=== PATIENT | female | born 1970 | race Caucasian/White ===

== ENCOUNTER 2016-06-29 11:24 | Emergency (ER) | payer SELFPAY ==
--- NOTE | 2016-06-29 13:32 | ED ORDER SUMMARY ---
..... Patient: GERRY WILSON OrderSheet [facility] VisitID: [id number] [address] [place] [address] 45y, F Registration Date/Time: 06/29/2016 ORDER SHEET Weight: 79.3 kg (stated) Allergies: Sulfa Antibiotics GENERAL ORDERS: MEDICATION ORDERS: Cephalexin PO 500 mg (NOW) (13:06/29/2016 Vahe COOK) (13:50 LWhalen R.N.) Zofran ODT PO 8 mg (NOW) (13:06/29/2016 Vahe COOK) (13:50 LWhaljoanne R.N.) Hydrocodone-APAP PO 5/325 mg (NOW, HIGH ALERT MEDICATION) (13:06/29/2016 Vahe COOK) (13:50 LWhalen R.N.) Toradol IM 60 mg (NOW) (13:06/29/2016 Vahe COOK) (13:51 LWhaljoanne R.N.) IV FLUIDS: ORDER SHEET NOTES: [Electronically signed by Kim Martínez R.N. (18:55 06/29/2016)] [Electronically signed by Nat Leon MD (08:11 07/03/2016)] [Electronically locked/signed by Kim Martínez R.N. (18:55 06/29/2016)]
--- NOTE | 2016-06-29 13:32 | ED NURSING NOTES ---
Clinical Report - Nurses [facility] [address] [place] [address] 06/29/2016 11:26 Patient: GERRY WILSON TRIAGE Triage time 11:35 Jun 29 2016. Acuity: LEVEL 3. Chief Complaint: RIGHT EAR PAIN and SINUS PAIN. ORACIO COMA SCORE: Oracio Coma Scale: 15- eyes open spontaneously (4); best verbal response- oriented x 4 (5); best motor response- obeys commands (6). --11:43 Kim Martínez R.N. 11:34 06/29/16. BP: 123/97. HR: 89. RR: 20. Temp: 98.0 F. --11:43 Kim Martínez R.N. Weight: 79.3 kg stated. Height/Length: 68 inches Per Patient. BMI: 26.6. --11:42 Kim Martínez R.N. Medications None. --11:35 Kim Martínez R.N. Allergies Sulfa Antibiotics. --11:35 Kim Martínez R.N. History Arrived by private vehicle. Historian: patient. Accompanied by family. Onset. (one weeks ago pain started.). She has had sinus pain and a headache. No fever, nasal discharge, ear drainage or sore throat. 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 PAST MEDICAL HX: No history of ear infection, hearing loss or prior nosebleeds. Immunizations: up-to-date. No history of sinus problems. SOCIAL HX: Current every day light tobacco smoker (cigarette)- less than 1/2 a pack per day. No alcohol use or drug use. SELF HARM ASSESSMENT: A self harm assessment was performed. The patient answered "no" to the question "Have you recently felt down, depressed, or hopeless?" and "Do you have thoughts of harming or killing yourself?". FALL RISK ASSESSMENT: Fall risk assessment completed. No fall risk identified. NUTRITIONAL RISK ASSESSMENT: The nutritional risk assessment revealed no deficiencies. FUNCTIONAL ASSESSMENT: Functional assessment: no impairments noted. LEARNING NEEDS ASSESSMENT: The learning needs assessment revealed no barriers. ABUSE ASSESSMENT: Abuse assessment: (yes) The patient was asked "Do you feel safe in your home?". SKIN INTEGRITY ASSESSMENT: Skin integrity risk assessment completed. No skin integrity risk identified. --11:43 Kim Martínez R.N. PROBLEMS: no known problems. ADDITIONAL SURGERIES: Appendectomy. Cholecystectomy. Csection . Hysterectomy. Jaw surgery . Right ankle tendon . Salvary glands removed . Shoulders . Wrist fx . --11:41 Kim Martínez R.N. Interventions ID and allergy band on patient. --11:43 Kim Martínez R.N. PHYSICAL ASSESSMENT Ambulatory to room. GENERAL / NEURO / PSYCH: Alert. Appears in no acute distress. HEENT: ( right side facial swelling). Pupils equal, round and reactive to light. EOM intact. ( previous surgeries and scars removed glands.). RESPIRATORY: Respirations not labored. CVS: Capillary refill less than 2 seconds. SKIN: Skin is warm and dry. --11:44 Kim Martínez R.N. NURSING PROGRESS NOTES The initial plan of care for this patient includes an assessment with efforts to address patient positioning and appropriate ambient lighting; impairment of the respiratory system. Head of bed elevated (45). Reassurance given. Call light placed in reach. Side rails up x 1. Bed placed in lowest position. Brakes of bed on. --11:45 Kim Martínez R.N. 13:35 06/29/2016 Cephalexin (Cephalexin Monohydrate) PO Capsules 500 mg given. Allergies verified and confirmed 5 rights. --13:50 Kim Martínez R.N. 13:40 06/29/2016 Zofran ODT (Ondansetron) PO Oral Disintegrating Tablets 8 mg given. Allergies verified and confirmed 5 rights. --13:50 Kim Martínez R.N. 13:40 06/29/2016 Hydrocodone-APAP (Hydrocodone-Acetaminophen) PO 5/325 mg Tablets 1 tab given. Allergies verified, confirmed 5 rights and sedative warning given to the patient's certified nursing attendant. --13:50 Kim Martínez R.N. 13:41 06/29/2016 Toradol (Ketorolac Tromethamine) IM 60 mg given. Given in the right gluteus vincenzo and left gluteus vincenzo (split dose). Allergies verified and confirmed 5 rights. --13:51 Kim Martínez R.N. DISPOSITION / DISCHARGE Departure time: 13:52 Jun 29 2016. Condition at departure: improved. No learning barriers present. Discharge instructions provided and reviewed with the patient. Reviewed warnings. Reviewed medication(s). Treatments reviewed. Reviewed referrals. Patient verbalized understanding. Written instructions provided in British. The patient was discharged home and accompanied by spouse. She left the Emergency Department ambulatory and via private vehicle. Spouse driving. --13:52 Kim Martínez R.N. 13:51 06/29/16. BP: 136/72. HR: 80. RR: 20. O2 saturation: 100%. Temp: 98.6 F. Pain level now 5/10. --13:52 Kim Martínez R.N. Locked/Released at 06/29/2016 18:55 by Kim Martínez R.N.
--- NOTE | 2016-06-29 13:32 | ED CLINICAL REPORT ---
Clinical Report - Physicians/Mid Levels [facility] [address] [place] [address] 06/29/2016 11:26 Patient: GERRY WILSON Time Seen: 11:31. Arrived- By private vehicle. Historian- patient. HISTORY OF PRESENT ILLNESS Chief Complaint: pain over R parotid gland. This started yesterday and is still present. Pain described as moderate. No sore throat, mouth sores, nasal discharge or congestion or ear pain. No toothache, swollen jaw or face or jaw pain. She has had facial pain. Similar symptoms previously: Many times. 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 Pt states she has had her submandibular glands both removed for this reason by an ENT in [place]. Pt states it feels like she is coming down with an infection in her R parotid gland.). Recent medical care: Not recently seen/assessed. REVIEW OF SYSTEMS No fever, eye discomfort, cough, difficulty breathing or chest pain. No nausea, diarrhea, abdominal pain, difficulty with urination or headache. No fainting episodes, joint pain, skin rash, enlarged lymph nodes or vomiting. All systems otherwise negative, except as recorded above. PAST HISTORY Problems: no known problems. Additional Surgeries: Appendectomy. Cholecystectomy. Csection . Hysterectomy. Jaw surgery . Right ankle tendon . Salvary glands removed . Shoulders . Wrist fx . Medications: None. Allergies: Sulfa Antibiotics. SOCIAL HISTORY Smoker- current status unknown. No alcohol use or drug use. ADDITIONAL NOTES The nursing notes have been reviewed. PHYSICAL EXAM Vital Signs: 06/29/2016 11:34 BP: 123/97. HR: 89. RR: 20. Temp: 98.0 F. Have been reviewed. Appearance: Alert. No acute distress. Head: Normal external inspection. Eyes: Pupils equal, round and reactive to light. Conjunctivae and eyelids normal. ENT: Ears normal. Nose normal. Pharynx normal. Lips normal. Gums normal. No trismus present. Uvula midline. (Pt does have mild tenderness over her R parotid gland.). Neck: Normal inspection. Trachea midline. No adenopathy. Thyroid normal. Neck supple. CVS: Normal heart rate and rhythm. Heart sounds normal. Pulses normal. Respiratory: No respiratory distress. Breath sounds normal. Chest nontender. Skin: Normal skin color. No rash. Normal skin turgor. Extremities: Extremities exhibit normal ROM. Neuro: Oriented X 3. No motor deficit. No sensory deficit. LABS, X-RAYS, AND EKG Pulse Oximetry: (FIO2 - room air). Interpretation: normal. PROGRESS AND PROCEDURES Course of Care: I did d/w pt that I do not see external evidence of infection. As she has been through this many times before, however, I will go ahead and treat her, as this may be an early manifestation of the issues she has had before. Pt was given Keflex, Toradol, Zofran, and hydrocodone. Patient counseled in person regarding the patient's stable condition, test results and need for follow-up. Concerns were addressed. Old medical records reviewed. Disposition: Discharged. Condition: stable. CLINICAL IMPRESSION Acute recurrent sialoadenitis INSTRUCTIONS Drink plenty of fluids. Warnings: Further evaluation is necessary. SEDATIVE MEDICATION: You were given sedative medication during your visit. Do not drive or operate dangerous machinery for 6 hours. GENERAL WARNINGS: Return or contact your physician immediately if your condition worsens or changes unexpectedly, if not improving as expected, or if other problems arise. Prescription Medications: Hydrocodone/APAP 5mg / 325mg: take 1 orally every 6 hours as needed for pain. Dispense twelve (12). Cephalexin 500 mg: take 1 capsule orally every 6 hours for 7 days. No refill. Understanding of the discharge instructions verbalized by patient. Follow-up with: Cheng Best MD, ENT, , [facility], [address] [place] [address], [facility], [id number] Follow up. Call for the next available appointment. Reason for referral: Follow up chronic salivary gland issues. (Electronically signed by Nat Leon MD 07/03/2016 8:11)
--- NOTE | 2016-06-29 13:32 | ED ORDER SUMMARY ---
..... Patient: GERRY WILSON OrderSheet [facility] VisitID: [id number] [address] [place] [address] 45y, F Registration Date/Time: 06/29/2016 ORDER SHEET Weight: 79.3 kg (stated) Allergies: Sulfa Antibiotics GENERAL ORDERS: MEDICATION ORDERS: Cephalexin PO 500 mg (NOW) (13:06/29/2016 Vahe COOK) (13:50 LWhalen R.N.) Zofran ODT PO 8 mg (NOW) (13:06/29/2016 Vahe COOK) (13:50 LWhaljoanne R.N.) Hydrocodone-APAP PO 5/325 mg (NOW, HIGH ALERT MEDICATION) (13:06/29/2016 Vahe COOK) (13:50 LWhalen R.N.) Toradol IM 60 mg (NOW) (13:06/29/2016 Vahe COOK) (13:51 LWhaljoanne R.N.) IV FLUIDS: ORDER SHEET NOTES: [Electronically signed by Kim Martínez R.N. (18:55 06/29/2016)] [Electronically signed by Nat Leon MD (08:11 07/03/2016)] [Electronically locked/signed by Kim Martínez R.N. (18:55 06/29/2016)]
--- NOTE | 2016-06-29 13:32 | ED CLINICAL REPORT ---
Clinical Report - Physicians/Mid Levels [facility] [address] [place] [address] 06/29/2016 11:26 Patient: GERRY WILSON Time Seen: 11:31. Arrived- By private vehicle. Historian- patient. HISTORY OF PRESENT ILLNESS Chief Complaint: pain over R parotid gland. This started yesterday and is still present. Pain described as moderate. No sore throat, mouth sores, nasal discharge or congestion or ear pain. No toothache, swollen jaw or face or jaw pain. She has had facial pain. Similar symptoms previously: Many times. 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 Pt states she has had her submandibular glands both removed for this reason by an ENT in [place]. Pt states it feels like she is coming down with an infection in her R parotid gland.). Recent medical care: Not recently seen/assessed. REVIEW OF SYSTEMS No fever, eye discomfort, cough, difficulty breathing or chest pain. No nausea, diarrhea, abdominal pain, difficulty with urination or headache. No fainting episodes, joint pain, skin rash, enlarged lymph nodes or vomiting. All systems otherwise negative, except as recorded above. PAST HISTORY Problems: no known problems. Additional Surgeries: Appendectomy. Cholecystectomy. Csection . Hysterectomy. Jaw surgery . Right ankle tendon . Salvary glands removed . Shoulders . Wrist fx . Medications: None. Allergies: Sulfa Antibiotics. SOCIAL HISTORY Smoker- current status unknown. No alcohol use or drug use. ADDITIONAL NOTES The nursing notes have been reviewed. PHYSICAL EXAM Vital Signs: 06/29/2016 11:34 BP: 123/97. HR: 89. RR: 20. Temp: 98.0 F. Have been reviewed. Appearance: Alert. No acute distress. Head: Normal external inspection. Eyes: Pupils equal, round and reactive to light. Conjunctivae and eyelids normal. ENT: Ears normal. Nose normal. Pharynx normal. Lips normal. Gums normal. No trismus present. Uvula midline. (Pt does have mild tenderness over her R parotid gland.). Neck: Normal inspection. Trachea midline. No adenopathy. Thyroid normal. Neck supple. CVS: Normal heart rate and rhythm. Heart sounds normal. Pulses normal. Respiratory: No respiratory distress. Breath sounds normal. Chest nontender. Skin: Normal skin color. No rash. Normal skin turgor. Extremities: Extremities exhibit normal ROM. Neuro: Oriented X 3. No motor deficit. No sensory deficit. LABS, X-RAYS, AND EKG Pulse Oximetry: (FIO2 - room air). Interpretation: normal. PROGRESS AND PROCEDURES Course of Care: I did d/w pt that I do not see external evidence of infection. As she has been through this many times before, however, I will go ahead and treat her, as this may be an early manifestation of the issues she has had before. Pt was given Keflex, Toradol, Zofran, and hydrocodone. Patient counseled in person regarding the patient's stable condition, test results and need for follow-up. Concerns were addressed. Old medical records reviewed. Disposition: Discharged. Condition: stable. CLINICAL IMPRESSION Acute recurrent sialoadenitis INSTRUCTIONS Drink plenty of fluids. Warnings: Further evaluation is necessary. SEDATIVE MEDICATION: You were given sedative medication during your visit. Do not drive or operate dangerous machinery for 6 hours. GENERAL WARNINGS: Return or contact your physician immediately if your condition worsens or changes unexpectedly, if not improving as expected, or if other problems arise. Prescription Medications: Hydrocodone/APAP 5mg / 325mg: take 1 orally every 6 hours as needed for pain. Dispense twelve (12). Cephalexin 500 mg: take 1 capsule orally every 6 hours for 7 days. No refill. Understanding of the discharge instructions verbalized by patient. Follow-up with: Cheng Best MD, ENT, , [facility], [address] [place] [address], [facility], [id number] Follow up. Call for the next available appointment. Reason for referral: Follow up chronic salivary gland issues. (Electronically signed by Nat Leon MD 07/03/2016 8:11)
--- NOTE | 2016-06-29 13:32 | ED NURSING NOTES ---
Clinical Report - Nurses [facility] [address] [place] [address] 06/29/2016 11:26 Patient: GERRY WILSON TRIAGE Triage time 11:35 Jun 29 2016. Acuity: LEVEL 3. Chief Complaint: RIGHT EAR PAIN and SINUS PAIN. ORACIO COMA SCORE: Oracio Coma Scale: 15- eyes open spontaneously (4); best verbal response- oriented x 4 (5); best motor response- obeys commands (6). --11:43 Kim Martínez R.N. 11:34 06/29/16. BP: 123/97. HR: 89. RR: 20. Temp: 98.0 F. --11:43 Kim Martínez R.N. Weight: 79.3 kg stated. Height/Length: 68 inches Per Patient. BMI: 26.6. --11:42 Kim Martínez R.N. Medications None. --11:35 Kim Martínez R.N. Allergies Sulfa Antibiotics. --11:35 Kim Martínez R.N. History Arrived by private vehicle. Historian: patient. Accompanied by family. Onset. (one weeks ago pain started.). She has had sinus pain and a headache. No fever, nasal discharge, ear drainage or sore throat. Treatment SIPHONER: (antibiotics, lemon water). PAST MEDICAL HX: No history of ear infection, hearing loss or prior nosebleeds. Immunizations: up-to-date. No history of sinus problems. SOCIAL HX: Current every day light tobacco smoker (cigarette)- less than 1/2 a pack per day. No alcohol use or drug use. SELF HARM ASSESSMENT: A self harm assessment was performed. The patient answered "no" to the question "Have you recently felt down, depressed, or hopeless?" and "Do you have thoughts of harming or killing yourself?". FALL RISK ASSESSMENT: Fall risk assessment completed. No fall risk identified. NUTRITIONAL RISK ASSESSMENT: The nutritional risk assessment revealed no deficiencies. FUNCTIONAL ASSESSMENT: Functional assessment: no impairments noted. LEARNING NEEDS ASSESSMENT: The learning needs assessment revealed no barriers. ABUSE ASSESSMENT: Abuse assessment: (yes) The patient was asked "Do you feel safe in your home?". SKIN INTEGRITY ASSESSMENT: Skin integrity risk assessment completed. No skin integrity risk identified. --11:43 Kim Martínez R.N. PROBLEMS: no known problems. ADDITIONAL SURGERIES: Appendectomy. Cholecystectomy. Csection . Hysterectomy. Jaw surgery . Right ankle tendon . Salvary glands removed . Shoulders . Wrist fx . --11:41 Kim Martínez R.N. Interventions ID and allergy band on patient. --11:43 Kim Martínez R.N. PHYSICAL ASSESSMENT Ambulatory to room. GENERAL / NEURO / PSYCH: Alert. Appears in no acute distress. HEENT: ( right side facial swelling). Pupils equal, round and reactive to light. EOM intact. ( previous surgeries and scars removed glands.). RESPIRATORY: Respirations not labored. CVS: Capillary refill less than 2 seconds. SKIN: Skin is warm and dry. --11:44 Kim Martínez R.N. NURSING PROGRESS NOTES The initial plan of care for this patient includes an assessment with efforts to address patient positioning and appropriate ambient lighting; impairment of the respiratory system. Head of bed elevated (45). Reassurance given. Call light placed in reach. Side rails up x 1. Bed placed in lowest position. Brakes of bed on. --11:45 Kim Martínez R.N. 13:35 06/29/2016 Cephalexin (Cephalexin Monohydrate) PO Capsules 500 mg given. Allergies verified and confirmed 5 rights. --13:50 Kim Martínez R.N. 13:40 06/29/2016 Zofran ODT (Ondansetron) PO Oral Disintegrating Tablets 8 mg given. Allergies verified and confirmed 5 rights. --13:50 Kim Martínez R.N. 13:40 06/29/2016 Hydrocodone-APAP (Hydrocodone-Acetaminophen) PO 5/325 mg Tablets 1 tab given. Allergies verified, confirmed 5 rights and sedative warning given to the patient's coordinator mining products. --13:50 Kim Martínez R.N. 13:41 06/29/2016 Toradol (Ketorolac Tromethamine) IM 60 mg given. Given in the right gluteus vincenzo and left gluteus vincenzo (split dose). Allergies verified and confirmed 5 rights. --13:51 Kim Martínez R.N. DISPOSITION / DISCHARGE Departure time: 13:52 Jun 29 2016. Condition at departure: improved. No learning barriers present. Discharge instructions provided and reviewed with the patient. Reviewed warnings. Reviewed medication(s). Treatments reviewed. Reviewed referrals. Patient verbalized understanding. Written instructions provided in Chilean. The patient was discharged home and accompanied by spouse. She left the Emergency Department ambulatory and via private vehicle. Spouse driving. --13:52 Kim Martínez R.N. 13:51 06/29/16. BP: 136/72. HR: 80. RR: 20. O2 saturation: 100%. Temp: 98.6 F. Pain level now 5/10. --13:52 Kim Martínez R.N. Locked/Released at 06/29/2016 18:55 by Kim Martínez R.N.
--- NOTE | 2016-07-03 08:11 | ED DISCHARGE INSTRUCTIONS ---
Patient: GERRY WILSON General Instructions [facility] VisitID: [id number] [address] [place] [address] 45y, F Registration Date/Time: 06/29/2016 Acute recurrent sialoadenitis INSTRUCTIONS Drink plenty of fluids. Warnings: Further evaluation is necessary. SEDATIVE MEDICATION: You were given sedative medication during your visit. Do not drive or operate dangerous machinery for 6 hours. GENERAL WARNINGS: Return or contact your physician immediately if your condition worsens or changes unexpectedly, if not improving as expected, or if other problems arise. Prescription Medications: Hydrocodone/APAP 5mg / 325mg: take 1 orally every 6 hours as needed for pain. Dispense twelve (12). Cephalexin 500 mg: take 1 capsule orally every 6 hours for 7 days. No refill. Understanding of the discharge instructions verbalized by patient. Follow-up with: Cheng Best MD, ENT, , [facility], [address] [place] [address], [id number] Follow up. Call for the next available appointment. Reason for referral: Follow up chronic salivary gland issues. ADDITIONAL INFORMATION Salivary Gland Infection Salivary glands make saliva in response to food in your mouth. Saliva is mostly water, but also has minerals and proteins that help break down food and keep the mouth and teeth healthy. There are three pairs of salivary glands: Parotid glands (in front of the ear) Submandibular glands (below the jaw) Sublingual glands (below the tongue) Each gland has a duct (channel) that allows saliva to flow from the gland into the mouth. The salivary gland can become infected as a result of the salivary duct being blocked. This blockage may be due to a stone, narrowing of the duct, or poor salivary flow due to dehydration. Chronic illness or certain medications can also increase the risk of infection. A blocked salivary gland is at risk of infection. This causes severe pain in the gland with redness in the skin over the gland. The gland is tender to the touch and there may be fever. Symptoms are worse during eating since food stimulates the flow of saliva. Even the smell or thought of food can cause symptoms to appear. Diagnosis of a salivary gland blockage with infection requires an X-ray, CT-scan, ultrasound or injection of dye into the salivary duct. If a stone is discovered, it may be removed by massage of the duct, or a procedure to remove the stone manually. Antibiotics are used to treat the infection. Sometimes it is necessary to drain the infection with a small surgical procedure. Home Care: Drink 6-8 glasses of fluid per day (water, juices, tea, soup, etc.) to keep well-hydrated. If you smoke, quit smoking. Maintain good dental hygiene: [place] your teeth, floss, and use mouthwash. If it is determined that no stone is present, but you have gland swelling during meals, there may be sludge blocking the duct, or the duct may be narrowed. Gently massaging the gland and sucking on lemon drops after a meal may help reduce the symptoms. Take antibiotics as directed until you have finished them all, even if you are feeling better after only a few days. Follow Up with your doctor or as advised by our staff. Get Prompt Medical Attention if any of the following occur: Increasing pain or swelling in the gland Fever over 100.5F (38.0C) that persists after two days of antibiotics Increasing redness over the gland You have been given the following additional information: Salivary Gland Infection (Electronically signed by Nat Leon MD 07/03/2016 8:11)
--- NOTE | 2016-07-03 08:11 | ED MAR SUMMARY ---
..... Medication Administration Record [facility] [address] [place] [address] Patient: GERRY WILSON Visit ID: [id number] 45y, F Weight: 79.3 kg Height/Length: 68 in BMI: 26.6 ALLERGIES: Sulfa Antibiotics Given 13:35 06/29/2016 Kim Martínez RNimco Medication Administered: CEPHALEXIN [PO] (CEPHALEXIN MONOHYDRATE), Dose: 500 mg Capsules PO. Medication Ordered: Cephalexin PO 500 mg (NOW). Given 13:40 06/29/2016 Kim Martínez R.NChuckie Medication Administered: ZOFRAN ODT [PO] (ONDANSETRON), Dose: 8 mg Oral Disintegrating Tablets PO. Medication Ordered: Zofran ODT PO 8 mg (NOW). Given 13:40 06/29/2016 Kim Martínez RChuckieNChuckie Medication Administered: HYDROCODONE-APAP [PO] (HYDROCODONE-ACETAMINOPHEN), Dose: 1 tab 5/325 mg Tablets PO. Medication Ordered: Hydrocodone-APAP PO 5/325 mg (NOW, HIGH ALERT MEDICATION). Given 13:41 06/29/2016 Kim Martínez RChuckieNChuckie Medication Administered: TORADOL [IM] (KETOROLAC TROMETHAMINE), Dose: 60 mg IM. Medication Ordered: Toradol IM 60 mg (NOW).
--- NOTE | 2016-07-03 08:11 | ED MED RECONCILIATION SUMMARY ---
Patient: GERRY WILSON Medication Reconciliation Report [facility] VisitID: [id number] [address] [place] [address] 45y, F Registration Date/Time: 06/29/2016 Weight: 79.3 kg Height/Length: 68 in. BMI: 26.6 ALLERGIES: Sulfa Antibiotics The patient's Home Medications are listed below: NONE. The source(s) of the original Home Medication information: Not obtained. The following Medications were given to the patient in the Emergency Department: Cephalexin [PO] PO 500 mg, administered: 06/29/2016 1:35:00 PM Zofran ODT [PO] PO 8 mg, administered: 06/29/2016 1:40:00 PM Hydrocodone-APAP [PO] PO 1 tab, administered: 06/29/2016 1:40:00 PM Toradol [IM] IM 60 mg, administered: 06/29/2016 1:41:00 PM The following Medications were prescribed to the patient: Hydrocodone/APAP 5mg / 325mg: take 1 orally every 6 hours as needed for pain. Dispense twelve (12). -- Nat Leon MD Cephalexin 500 mg: take 1 capsule orally every 6 hours for 7 days. No refill. -- Nat Leon MD
--- NOTE | 2016-07-03 08:11 | ED DISCHARGE INSTRUCTIONS ---
Patient: GERRY WILSON General Instructions [facility] VisitID: [id number] [address] [place] [address] 45y, F Registration Date/Time: 06/29/2016 Acute recurrent sialoadenitis INSTRUCTIONS Drink plenty of fluids. Warnings: Further evaluation is necessary. SEDATIVE MEDICATION: You were given sedative medication during your visit. Do not drive or operate dangerous machinery for 6 hours. GENERAL WARNINGS: Return or contact your physician immediately if your condition worsens or changes unexpectedly, if not improving as expected, or if other problems arise. Prescription Medications: Hydrocodone/APAP 5mg / 325mg: take 1 orally every 6 hours as needed for pain. Dispense twelve (12). Cephalexin 500 mg: take 1 capsule orally every 6 hours for 7 days. No refill. Understanding of the discharge instructions verbalized by patient. Follow-up with: Cheng Best MD, ENT, , [facility], [address] [place] [address], [phone] Follow up. Call for the next available appointment. Reason for referral: Follow up chronic salivary gland issues. ADDITIONAL INFORMATION Salivary Gland Infection Salivary glands make saliva in response to food in your mouth. Saliva is mostly water, but also has minerals and proteins that help break down food and keep the mouth and teeth healthy. There are three pairs of salivary glands: Parotid glands (in front of the ear) Submandibular glands (below the jaw) Sublingual glands (below the tongue) Each gland has a duct (channel) that allows saliva to flow from the gland into the mouth. The salivary gland can become infected as a result of the salivary duct being blocked. This blockage may be due to a stone, narrowing of the duct, or poor salivary flow due to dehydration. Chronic illness or certain medications can also increase the risk of infection. A blocked salivary gland is at risk of infection. This causes severe pain in the gland with redness in the skin over the gland. The gland is tender to the touch and there may be fever. Symptoms are worse during eating since food stimulates the flow of saliva. Even the smell or thought of food can cause symptoms to appear. Diagnosis of a salivary gland blockage with infection requires an X-ray, CT-scan, ultrasound or injection of dye into the salivary duct. If a stone is discovered, it may be removed by massage of the duct, or a procedure to remove the stone manually. Antibiotics are used to treat the infection. Sometimes it is necessary to drain the infection with a small surgical procedure. Home Care: Drink 6-8 glasses of fluid per day (water, juices, tea, soup, etc.) to keep well-hydrated. If you smoke, quit smoking. Maintain good dental hygiene: [place] your teeth, floss, and use mouthwash. If it is determined that no stone is present, but you have gland swelling during meals, there may be sludge blocking the duct, or the duct may be narrowed. Gently massaging the gland and sucking on lemon drops after a meal may help reduce the symptoms. Take antibiotics as directed until you have finished them all, even if you are feeling better after only a few days. Follow Up with your doctor or as advised by our staff. Get Prompt Medical Attention if any of the following occur: Increasing pain or swelling in the gland Fever over 100.5F (38.0C) that persists after two days of antibiotics Increasing redness over the gland You have been given the following additional information: Salivary Gland Infection (Electronically signed by Nat Leon MD 07/03/2016 8:11)
--- NOTE | 2016-07-03 08:11 | ED MED RECONCILIATION SUMMARY ---
Patient: GERRY WILSON Medication Reconciliation Report [facility] VisitID: [id number] [address] [place] [address] 45y, F Registration Date/Time: 06/29/2016 Weight: 79.3 kg Height/Length: 68 in. BMI: 26.6 ALLERGIES: Sulfa Antibiotics The patient's Home Medications are listed below: NONE. The source(s) of the original Home Medication information: Not obtained. The following Medications were given to the patient in the Emergency Department: Cephalexin [PO] PO 500 mg, administered: 06/29/2016 1:35:00 PM Zofran ODT [PO] PO 8 mg, administered: 06/29/2016 1:40:00 PM Hydrocodone-APAP [PO] PO 1 tab, administered: 06/29/2016 1:40:00 PM Toradol [IM] IM 60 mg, administered: 06/29/2016 1:41:00 PM The following Medications were prescribed to the patient: Hydrocodone/APAP 5mg / 325mg: take 1 orally every 6 hours as needed for pain. Dispense twelve (12). -- Nat Leon MD Cephalexin 500 mg: take 1 capsule orally every 6 hours for 7 days. No refill. -- Nat Leon MD
--- NOTE | 2016-07-03 08:11 | ED MAR SUMMARY ---
..... Medication Administration Record [facility] [address] [place] [address] Patient: GERRY WILSON Visit ID: [id number] 45y, F Weight: 79.3 kg Height/Length: 68 in BMI: 26.6 ALLERGIES: Sulfa Antibiotics Given 13:35 06/29/2016 Kim Martínez RNimco Medication Administered: CEPHALEXIN [PO] (CEPHALEXIN MONOHYDRATE), Dose: 500 mg Capsules PO. Medication Ordered: Cephalexin PO 500 mg (NOW). Given 13:40 06/29/2016 Kim Martínez R.NChuckie Medication Administered: ZOFRAN ODT [PO] (ONDANSETRON), Dose: 8 mg Oral Disintegrating Tablets PO. Medication Ordered: Zofran ODT PO 8 mg (NOW). Given 13:40 06/29/2016 Kmi Martínez RChuckieNChuckie Medication Administered: HYDROCODONE-APAP [PO] (HYDROCODONE-ACETAMINOPHEN), Dose: 1 tab 5/325 mg Tablets PO. Medication Ordered: Hydrocodone-APAP PO 5/325 mg (NOW, HIGH ALERT MEDICATION). Given 13:41 06/29/2016 Kim Martínez RChuckieNChuckie Medication Administered: TORADOL [IM] (KETOROLAC TROMETHAMINE), Dose: 60 mg IM. Medication Ordered: Toradol IM 60 mg (NOW).
== END 2016-06-29 14:00 | disposition home or self-care (01) ==
LOC: ED SRH 11:24
DX: K11.22 Acute recurrent sialoadenitis (principal); Z88.2 Allergy status to sulfonamides

== ENCOUNTER → 2016-07-03 | Emergency (ER) | payer SELFPAY ==
--- NOTE | 2016-07-03 16:15 | ED ORDER SUMMARY ---
..... Patient: GERRY WILSON OrderSheet [facility] VisitID: [id number] [address] [place] [address] 45y, F Registration Date/Time: 07/03/2016 ORDER SHEET Weight: 81.6 kg (stated) Allergies: Sulfa Antibiotics GENERAL ORDERS: CT Soft Tissue Neck w Cont (No) (pending) Urgent (14:05 07/03/2016 HBivens A.R.N.P.) (Ack 14:06 KHoerner) (14:08 HBivens A.R.N.P.) (Cancelled: Patient Acoxzbg71:08 HBivens A.R.N.P.) CBC w Diff Urgent (14:05 07/03/2016 HBivens A.R.N.P.) (Ack 14:06 KHoerner) (15:08 KKnebel R.N.) CMP Urgent (14:05 07/03/2016 HBivens A.R.N.P.) (Ack 14:06 KHoerner) (15:08 KKnebel R.N.) MEDICATION ORDERS: IV FLUIDS: Toradol IV 30 mg (NOW) (14:05 07/03/2016 HBivens A.R.N.P.) (15:08 KKnebel R.N.) IV Saline Lock (14:07/03/2016 HBivens A.R.N.P.) (15:07 KKnebel R.N.) ORDER SHEET NOTES: [Electronically signed by Sharmaine Childs R.N. (16:27 07/03/2016)] [Electronically signed by Jane HookerR.N.PChuckie (16:52 07/03/2016)] [Electronically locked/signed by Sharmaine Childs R.N. (16:27 07/03/2016)]
--- NOTE | 2016-07-03 16:15 | ED CLINICAL REPORT ---
Clinical Report - Physicians/Mid Levels [facility] [address] [place] [address] 07/03/2016 13:02 Patient: GERRY WILSON Time Seen: 13:56; initial patient contact, initial documentation, patient care assumed. Arrived- By private vehicle. Historian- patient. HISTORY OF PRESENT ILLNESS Chief Complaint: JAW PAIN. This started about 1 weeks ago and is still present. Pain described as severe. No sore throat, mouth sores, nasal discharge or congestion or ear pain. No toothache or swollen jaw or face. She has had jaw pain and facial pain. 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 Similar symptoms previously: Frequently, worse. ( Similar symptoms previously: Many times. 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 Pt states she has had her submandibular glands both removed for this reason by an ENT in [place]. Pt states it feels like she is coming down with an infection in her R parotid gland.).). Recent medical care: The patient was seen recently at this facility in the emergency department. ( txed here /, Pt was given Keflex, Toradol, Zofran, and hydrocodone.). REVIEW OF SYSTEMS No fever, difficulty breathing or vomiting. All systems otherwise negative, except as recorded above. PAST HISTORY See nurses notes. PROBLEMS: Sialoadenitis. --13:13 Sharmaine Childs R.N. ADDITIONAL SURGERIES: Appendectomy. Cholecystectomy. Csection . Hysterectomy. Jaw surgery . Right ankle tendon . Salvary glands removed . Shoulders . Wrist fx . --13:13 Sharmaine Childs R.N. SOCIAL HISTORY Never smoker. No alcohol use or drug use. No recent travel. Is a local resident. FAMILY HISTORY Negative. ADDITIONAL NOTES The nursing notes have been reviewed with agreement regarding the chief complaint, HPI, ROS, PMH and patient medications and allergies. PHYSICAL EXAM Vital Signs: 07/03/2016 13:09 BP: 133/65. HR: 97. RR: 20. O2 saturation: 100%. Temp: 98.1 F. Pain level now: 6/10. Have been reviewed as normal and appear to be correct. Appearance: Alert. No acute distress. Head: Normal external inspection. Eyes: Pupils equal, round and reactive to light. Conjunctivae and eyelids normal. ENT: Ears normal. Nose normal. Pharynx normal. Lips normal. Gums normal. No trismus present. Uvula midline. Neck: Lymphadenopathy. Normal inspection. Mild right submandibular lymphadenopathy present. Trachea midline. Thyroid normal. Neck supple. Respiratory: No respiratory distress. Skin: Normal skin color. No rash. Normal skin turgor. Extremities: Extremities exhibit normal ROM. Extremities nontender. Neuro: Oriented X 3. No motor deficit. No sensory deficit. LABS, X-RAYS, AND EKG Laboratory Tests: CBC w Diff: (ANNA: 07/03/2016 15:10) ( MsgRcvd 07/03/2016 15:29) Final results Test Result Flag Units (Reference) WHITE BLOOD COUNT 5.9 K/uL (4.5-11.5) RED BLOOD COUNT 4.24 M/uL (4.00-5.20) HEMOGLOBIN 12.2 gm/dL (12.0-16.0) HEMATOCRIT 36.6 % (36.0-46.0) MEAN CELL VOLUME 86 fL (80-100) MEAN CORPUSCULAR HGB 29 pg (26-34) MEAN CORPUSCULAR HGB CONC 33 g/dL (31-37) RED CELL DISTRIBUTION WIDTH 14.9 H % (11.6-14.8) PLATELET COUNT 292 K/uL (150-400) NEUTROPHIL % 40.1 L % (50-75) LYMPH % 51.2 H % (25-40) MONO % 5.5 % (3-14) EOSINOPHIL % 2.5 % (0-4) BASOPHIL % 0.7 % (0-2) CMP: (ANNA: 07/03/2016 15:10) ( MsgRcvd 07/03/2016 15:48) Final results Test Result Flag Units (Reference) GLUCOSE 100 mg/dL (70-110) BUN 20 H mg/dL (7-18) CREATININE 0.8 mg/dL (0.6-1.3) Estimated GFR >60 mL/min Estimated GFR- >60 mL/min Note: Persistent reduction over 3 months in eGFR<60 mL/min/1.73 m2 defines CKD. Patients with eGFR values>=60 mL/min/1.73 m2 may also have CKD if evidence ofpersistent proteinuria. Additional information may be foundat www.kidney.org. SODIUM 143 mmol/L (136-145) POTASSIUM 4.3 mmol/L (3.5-5.1) CHLORIDE 106 mmol/L (98-107) CARBON DIOXIDE 29 mmol/L (21-32) CALCIUM 9.2 mg/dL (8.5-10.1) TOTAL PROTEIN 6.9 g/dL (6.4-8.2) ALBUMIN 3.8 g/dL (3.3-5.0) BILIRUBIN, TOTAL 0.2 mg/dL (0.0-1.0) ALKALINE PHOSPHATASE 84 U/L (46-116) AST (SGOT) 23 U/L (15-37) ALT (SGPT) 24 U/L (12-78) . PROGRESS AND PROCEDURES Course of Care: 14:08 07/03/16. pt telling me ct is useless, they won't see anything, doesn't want it done, but agrees to blood work, ct canceled per her request 14:16 07/03/16. pt has brief romario, nothing alarming, see report for full details 16:14 07/03/16. dc plan discussed, agreed to give name of new ent, because she couldn't get into one we gave her last time, and maybe more pain meds. Patient and family counseled in person regarding the patient's stable condition, test results and diagnosis. 16:10. Differential Diagnosis: Other possible considerations: salivary gland stone, submandibular abscess, substance abuse, dental abscess, lymphoma, ca. Above considerations are based on history, physical exam and laboratory data. Differential diagnosis was discussed with patient and patient's family. Disposition: Discharged home in good and unchanged condition (16:15). Condition: good and stable. CLINICAL IMPRESSION Sialolithiasis. No associated abscess or acute parotitis. INSTRUCTIONS (continue with current antibiotics and other medications as previously directed and discussed). Warnings: GENERAL WARNINGS: Return or contact your physician immediately if your condition worsens or changes unexpectedly, if not improving as expected, or if other problems arise. Specifically return if problem worsens. Prescription Medications: Ultram 50 mg tablets: take 1-2 orally every 6 hours as needed for pain. Dispense twenty (20). No refills. Substitution is permissible. Understanding of the discharge instructions verbalized by patient and family. Follow-up with: Hector Covington MD, ENT, , [facility], [address] [place] [address], [phone]; Romario Lozano MD, ENT, , [facility] Office, [address] [facility] [address] [facility], [place], [address] Follow up in about two days as needed. Call for an appointment. Summary of care provided to patient. (Electronically signed by Jane Hooker A.R.N.P. 07/03/2016 16:52)
--- NOTE | 2016-07-03 16:15 | ED NURSING NOTES ---
Clinical Report - Nurses [facility] [address] [place] [address] 07/03/2016 13:02 Patient: GERRY WILSON TRIAGE Triage time 13:Jul 03 2016. Acuity: LEVEL 4. Chief Complaint: (salivary stones). Alert. No acute distress. --13:15 Sharmaine Childs R.N. 13:09 07/03/16. BP: 133/65. HR: 97. RR: 20. O2 saturation: 100%. Temp: 98.1 F. Pain level now: 10/07. --13:15 Sharmaine Childs R.N. Weight: 81.6 kg stated. Height/Length: 67 inches Per Patient. BMI: 28.2. --13:14 Sharmaine Childs R.N. Medications Vicodin Oral (Tablet 5-300 mg) 1 tablet, 4x a day. --13:12 Sharmaine Childs R.N. Cephlaexin 500 mg , 4x a day. --13:12 Sharmaine Childs R.N. Allergies Sulfa Antibiotics. --13:13 Sharmaine Childs R.N. History Arrived by private vehicle. Historian: patient. Accompanied by family. Onset. (about 1 weeks). 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 (vicodin, cephalexin). PAST MEDICAL HX: Immunizations: up-to-date. Has had a hysterectomy. SOCIAL HX: Never smoker. No alcohol use or drug use. No infectious disease exposure. SELF HARM ASSESSMENT: A self harm assessment was performed. The patient answered "no" to the question "Do you have thoughts of harming or killing yourself?". FALL RISK ASSESSMENT: Fall risk assessment completed. No fall risk identified. NUTRITIONAL RISK ASSESSMENT: The nutritional risk assessment revealed no deficiencies. FUNCTIONAL ASSESSMENT: Functional assessment: no impairments noted. LEARNING NEEDS ASSESSMENT: The learning needs assessment revealed no barriers. ABUSE ASSESSMENT: Abuse assessment: The patient was asked "Do you feel safe in your home?". SKIN INTEGRITY ASSESSMENT: Skin integrity risk assessment completed. No skin integrity risk identified. --13:15 Sharmaine Childs R.N. PROBLEMS: Sialoadenitis. --13:13 Sharmaine Childs R.N. ADDITIONAL SURGERIES: Appendectomy. Cholecystectomy. Csection . Hysterectomy. Jaw surgery . Right ankle tendon . Salvary glands removed . Shoulders . Wrist fx . --13:13 Sharmaine Childs R.N. Assessment The patient states feels the same. --13:15 Sharmaine Childs R.N. Interventions ID band on patient. --13:15 Sharmaine Childs R.N. Allergy band on patient. --13:15 Sharmaine Childs R.N. PHYSICAL ASSESSMENT GENERAL / NEURO / PSYCH: Alert. Oriented X 4. Appears in no acute distress. HEENT: No facial asymmetry noted. ( right lower jaw pain). RESPIRATORY: Respirations not labored. CVS: Capillary refill less than 2 seconds. GI / : Abdomen soft. SKIN: Skin is warm and dry. --13:16 Sharmaine Childs R.N. NURSING PROGRESS NOTES Head of bed elevated. Two patient identifiers checked. Call light placed in reach. Side rails up x 1. Bed placed in lowest position. Brakes of bed on. Care transferred and report given. --13:16 Sharmaine Childs R.N. 15:07 07/03/2016 Site #1 started via IV in the left hand with an 22g angiocath; one attempt. Saline lock flushed with 10 mL saline. --15:07 Sharmaine Childs R.N. 15:07 07/03/2016 Toradol IVP 30 mg given over 2 minute(s) via site #1. Allergies verified and confirmed 5 rights. IV patency established. IV site checked: no pain, redness, or swelling. IV flushed thoroughly pre- and post-medication administration. --15:08 Sharmaine Childs R.N. 15:41 07/03/16. BP: 125/84. HR: 82. O2 saturation: 99%. Pain level now: 5/10. --15:42 Sharmaine Childs R.N. DISPOSITION / DISCHARGE 16:24 07/03/16. BP: 125/89. HR: 80. RR: 16. O2 saturation: 98%. Pain level now: 09/06. --16:24 Sharmaine Childs R.N. 16:25 07/03/2016 Site #1 removed upon discharge. Bandage applied. --16:25 Sharmaine Childs R.N. Departure time: 16:26 Jul 03 2016. Condition at departure: improved. The following issues were addressed: pain control. No learning barriers present. Discharge instructions provided and reviewed with the patient. Reviewed medication(s) side effects, precautions and dosing information. Prescription(s) given to the patient. Reviewed referral to a primary care physician. Patient verbalized understanding. Written instructions provided in [place]i. The patient was discharged home and accompanied by spouse. She left the Emergency Department ambulatory and via private vehicle. Spouse driving. FALL RISK ASSESSMENT: Fall risk assessment completed. No fall risk identified. --16:27 Sharmaine Childs R.N. Locked/Released at 07/03/2016 16:27 by Sharmaine Childs R.N.
--- NOTE | 2016-07-03 16:15 | ED ORDER SUMMARY ---
..... Patient: GERRY WILSON OrderSheet [facility] VisitID: [id number] [address] [place] [address] 45y, F Registration Date/Time: 07/03/2016 ORDER SHEET Weight: 81.6 kg (stated) Allergies: Sulfa Antibiotics GENERAL ORDERS: CT Soft Tissue Neck w Cont (No) (pending) Urgent (14:05 07/03/2016 HBivens A.R.N.P.) (Ack 14:06 KHoerner) (14:08 HBivens A.R.N.P.) (Cancelled: Patient Wcspmfv07:08 HBivens A.R.N.P.) CBC w Diff Urgent (14:05 07/03/2016 HBivens A.R.N.P.) (Ack 14:06 KHoerner) (15:08 KKnebel R.N.) CMP Urgent (14:05 07/03/2016 HBivens A.R.N.P.) (Ack 14:06 KHoerner) (15:08 KKnebel R.N.) MEDICATION ORDERS: IV FLUIDS: Toradol IV 30 mg (NOW) (14:05 07/03/2016 HBivens A.R.N.P.) (15:08 KKnebel R.N.) IV Saline Lock (14:07/03/2016 HBivens A.R.N.P.) (15:07 KKnebel R.N.) ORDER SHEET NOTES: [Electronically signed by Sharmaine Childs R.N. (16:27 07/03/2016)] [Electronically signed by Jane HookerR.N.PChuckie (16:52 07/03/2016)] [Electronically locked/signed by Sharmaine Childs R.N. (16:27 07/03/2016)]
--- NOTE | 2016-07-03 16:15 | ED NURSING NOTES ---
Clinical Report - Nurses [facility] [address] [place] [address] 07/03/2016 13:02 Patient: GERRY WILSON TRIAGE Triage time 13:Jul 03 2016. Acuity: LEVEL 4. Chief Complaint: (salivary stones). Alert. No acute distress. --13:15 Sharmaine Childs R.N. 13:09 07/03/16. BP: 133/65. HR: 97. RR: 20. O2 saturation: 100%. Temp: 98.1 F. Pain level now: 10/07. --13:15 Sharmaine Childs R.N. Weight: 81.6 kg stated. Height/Length: 67 inches Per Patient. BMI: 28.2. --13:14 Sharmaine Childs R.N. Medications Vicodin Oral (Tablet 5-300 mg) 1 tablet, 4x a day. --13:12 Sharmaine Childs R.N. Cephlaexin 500 mg , 4x a day. --13:12 Sharmaine Childs R.N. Allergies Sulfa Antibiotics. --13:13 Sharmaine Childs R.N. History Arrived by private vehicle. Historian: patient. Accompanied by family. Onset. (about 1 weeks). 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 (vicodin, cephalexin). PAST MEDICAL HX: Immunizations: up-to-date. Has had a hysterectomy. SOCIAL HX: Never smoker. No alcohol use or drug use. No infectious disease exposure. SELF HARM ASSESSMENT: A self harm assessment was performed. The patient answered "no" to the question "Do you have thoughts of harming or killing yourself?". FALL RISK ASSESSMENT: Fall risk assessment completed. No fall risk identified. NUTRITIONAL RISK ASSESSMENT: The nutritional risk assessment revealed no deficiencies. FUNCTIONAL ASSESSMENT: Functional assessment: no impairments noted. LEARNING NEEDS ASSESSMENT: The learning needs assessment revealed no barriers. ABUSE ASSESSMENT: Abuse assessment: The patient was asked "Do you feel safe in your home?". SKIN INTEGRITY ASSESSMENT: Skin integrity risk assessment completed. No skin integrity risk identified. --13:15 Sharmaine Childs R.N. PROBLEMS: Sialoadenitis. --13:13 Sharmaine Childs R.N. ADDITIONAL SURGERIES: Appendectomy. Cholecystectomy. Csection . Hysterectomy. Jaw surgery . Right ankle tendon . Salvary glands removed . Shoulders . Wrist fx . --13:13 Sharmaine Childs R.N. Assessment The patient states feels the same. --13:15 Sharmaine Childs R.N. Interventions ID band on patient. --13:15 Sharmaine Childs R.N. Allergy band on patient. --13:15 Sharmaine Childs R.N. PHYSICAL ASSESSMENT GENERAL / NEURO / PSYCH: Alert. Oriented X 4. Appears in no acute distress. HEENT: No facial asymmetry noted. ( right lower jaw pain). RESPIRATORY: Respirations not labored. CVS: Capillary refill less than 2 seconds. GI / : Abdomen soft. SKIN: Skin is warm and dry. --13:16 Sharmaine Childs R.N. NURSING PROGRESS NOTES Head of bed elevated. Two patient identifiers checked. Call light placed in reach. Side rails up x 1. Bed placed in lowest position. Brakes of bed on. Care transferred and report given. --13:16 Sharmaine Childs R.N. 15:07 07/03/2016 Site #1 started via IV in the left hand with an 22g angiocath; one attempt. Saline lock flushed with 10 mL saline. --15:07 Sharmaine Childs R.N. 15:07 07/03/2016 Toradol IVP 30 mg given over 2 minute(s) via site #1. Allergies verified and confirmed 5 rights. IV patency established. IV site checked: no pain, redness, or swelling. IV flushed thoroughly pre- and post-medication administration. --15:08 Sharmaine Childs R.N. 15:41 07/03/16. BP: 125/84. HR: 82. O2 saturation: 99%. Pain level now: 5/10. --15:42 Sharmaine Childs R.N. DISPOSITION / DISCHARGE 16:24 07/03/16. BP: 125/89. HR: 80. RR: 16. O2 saturation: 98%. Pain level now: 09/06. --16:24 Sharmaine Childs R.N. 16:25 07/03/2016 Site #1 removed upon discharge. Bandage applied. --16:25 Sharmaine Childs R.N. Departure time: 16:26 Jul 03 2016. Condition at departure: improved. The following issues were addressed: pain control. No learning barriers present. Discharge instructions provided and reviewed with the patient. Reviewed medication(s) side effects, precautions and dosing information. Prescription(s) given to the patient. Reviewed referral to a primary care physician. Patient verbalized understanding. Written instructions provided in Burmese. The patient was discharged home and accompanied by spouse. She left the Emergency Department ambulatory and via private vehicle. Spouse driving. FALL RISK ASSESSMENT: Fall risk assessment completed. No fall risk identified. --16:27 Sharmaine Childs R.N. Locked/Released at 07/03/2016 16:27 by Sharmaine Childs R.N.
--- NOTE | 2016-07-03 16:15 | ED CLINICAL REPORT ---
Clinical Report - Physicians/Mid Levels [facility] [address] [place] [address] 07/03/2016 13:02 Patient: GERRY WILSON Time Seen: 13:56; initial patient contact, initial documentation, patient care assumed. Arrived- By private vehicle. Historian- patient. HISTORY OF PRESENT ILLNESS Chief Complaint: JAW PAIN. This started about 1 weeks ago and is still present. Pain described as severe. No sore throat, mouth sores, nasal discharge or congestion or ear pain. No toothache or swollen jaw or face. She has had jaw pain and facial pain. 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 Similar symptoms previously: Frequently, worse. ( Similar symptoms previously: Many times. 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 Pt states she has had her submandibular glands both removed for this reason by an ENT in [place]. Pt states it feels like she is coming down with an infection in her R parotid gland.).). Recent medical care: The patient was seen recently at this facility in the emergency department. ( txed here /, Pt was given Keflex, Toradol, Zofran, and hydrocodone.). REVIEW OF SYSTEMS No fever, difficulty breathing or vomiting. All systems otherwise negative, except as recorded above. PAST HISTORY See nurses notes. PROBLEMS: Sialoadenitis. --13:13 Sharmaine Childs R.N. ADDITIONAL SURGERIES: Appendectomy. Cholecystectomy. Csection . Hysterectomy. Jaw surgery . Right ankle tendon . Salvary glands removed . Shoulders . Wrist fx . --13:13 Sharmaine Childs R.N. SOCIAL HISTORY Never smoker. No alcohol use or drug use. No recent travel. Is a local resident. FAMILY HISTORY Negative. ADDITIONAL NOTES The nursing notes have been reviewed with agreement regarding the chief complaint, HPI, ROS, PMH and patient medications and allergies. PHYSICAL EXAM Vital Signs: 07/03/2016 13:09 BP: 133/65. HR: 97. RR: 20. O2 saturation: 100%. Temp: 98.1 F. Pain level now: 6/10. Have been reviewed as normal and appear to be correct. Appearance: Alert. No acute distress. Head: Normal external inspection. Eyes: Pupils equal, round and reactive to light. Conjunctivae and eyelids normal. ENT: Ears normal. Nose normal. Pharynx normal. Lips normal. Gums normal. No trismus present. Uvula midline. Neck: Lymphadenopathy. Normal inspection. Mild right submandibular lymphadenopathy present. Trachea midline. Thyroid normal. Neck supple. Respiratory: No respiratory distress. Skin: Normal skin color. No rash. Normal skin turgor. Extremities: Extremities exhibit normal ROM. Extremities nontender. Neuro: Oriented X 3. No motor deficit. No sensory deficit. LABS, X-RAYS, AND EKG Laboratory Tests: CBC w Diff: (ANNA: 07/03/2016 15:10) ( MsgRcvd 07/03/2016 15:29) Final results Test Result Flag Units (Reference) WHITE BLOOD COUNT 5.9 K/uL (4.5-11.5) RED BLOOD COUNT 4.24 M/uL (4.00-5.20) HEMOGLOBIN 12.2 gm/dL (12.0-16.0) HEMATOCRIT 36.6 % (36.0-46.0) MEAN CELL VOLUME 86 fL (80-100) MEAN CORPUSCULAR HGB 29 pg (26-34) MEAN CORPUSCULAR HGB CONC 33 g/dL (31-37) RED CELL DISTRIBUTION WIDTH 14.9 H % (11.6-14.8) PLATELET COUNT 292 K/uL (150-400) NEUTROPHIL % 40.1 L % (50-75) LYMPH % 51.2 H % (25-40) MONO % 5.5 % (3-14) EOSINOPHIL % 2.5 % (0-4) BASOPHIL % 0.7 % (0-2) CMP: (ANNA: 07/03/2016 15:10) ( MsgRcvd 07/03/2016 15:48) Final results Test Result Flag Units (Reference) GLUCOSE 100 mg/dL (70-110) BUN 20 H mg/dL (7-18) CREATININE 0.8 mg/dL (0.6-1.3) Estimated GFR >60 mL/min Estimated GFR- >60 mL/min Note: Persistent reduction over 3 months in eGFR<60 mL/min/1.73 m2 defines CKD. Patients with eGFR values>=60 mL/min/1.73 m2 may also have CKD if evidence ofpersistent proteinuria. Additional information may be foundat www.kidney.org. SODIUM 143 mmol/L (136-145) POTASSIUM 4.3 mmol/L (3.5-5.1) CHLORIDE 106 mmol/L (98-107) CARBON DIOXIDE 29 mmol/L (21-32) CALCIUM 9.2 mg/dL (8.5-10.1) TOTAL PROTEIN 6.9 g/dL (6.4-8.2) ALBUMIN 3.8 g/dL (3.3-5.0) BILIRUBIN, TOTAL 0.2 mg/dL (0.0-1.0) ALKALINE PHOSPHATASE 84 U/L (46-116) AST (SGOT) 23 U/L (15-37) ALT (SGPT) 24 U/L (12-78) . PROGRESS AND PROCEDURES Course of Care: 14:08 07/03/16. pt telling me ct is useless, they won't see anything, doesn't want it done, but agrees to blood work, ct canceled per her request 14:16 07/03/16. pt has brief romario, nothing alarming, see report for full details 16:14 07/03/16. dc plan discussed, agreed to give name of new ent, because she couldn't get into one we gave her last time, and maybe more pain meds. Patient and family counseled in person regarding the patient's stable condition, test results and diagnosis. 16:10. Differential Diagnosis: Other possible considerations: salivary gland stone, submandibular abscess, substance abuse, dental abscess, lymphoma, ca. Above considerations are based on history, physical exam and laboratory data. Differential diagnosis was discussed with patient and patient's family. Disposition: Discharged home in good and unchanged condition (16:15). Condition: good and stable. CLINICAL IMPRESSION Sialolithiasis. No associated abscess or acute parotitis. INSTRUCTIONS (continue with current antibiotics and other medications as previously directed and discussed). Warnings: GENERAL WARNINGS: Return or contact your physician immediately if your condition worsens or changes unexpectedly, if not improving as expected, or if other problems arise. Specifically return if problem worsens. Prescription Medications: Ultram 50 mg tablets: take 1-2 orally every 6 hours as needed for pain. Dispense twenty (20). No refills. Substitution is permissible. Understanding of the discharge instructions verbalized by patient and family. Follow-up with: Hector Covington MD, ENT, , [facility], [address] [place] [address], [id number]; Romario Lozano MD, ENT, , [facility], [address] [facility] [address] [facility], [place], [address] Follow up in about two days as needed. Call for an appointment. Summary of care provided to patient. (Electronically signed by Jane Hooker A.R.N.P. 07/03/2016 16:52)
--- NOTE | 2016-07-03 16:53 | ED DISCHARGE INSTRUCTIONS ---
Patient: GERRY WILSON General Instructions [facility] VisitID: [id number] [address] [place] [address] 45y, F Registration Date/Time: 07/03/2016 Sialolithiasis. No associated abscess or acute parotitis. INSTRUCTIONS (continue with current antibiotics and other medications as previously directed and discussed). Warnings: GENERAL WARNINGS: Return or contact your physician immediately if your condition worsens or changes unexpectedly, if not improving as expected, or if other problems arise. Specifically return if problem worsens. Prescription Medications: Ultram 50 mg tablets: take 1-2 orally every 6 hours as needed for pain. Dispense twenty (20). No refills. Substitution is permissible. Understanding of the discharge instructions verbalized by patient and family. Follow-up with: Hector Covington MD, ENT, , [facility], [address] [place] [id number]; Romario Lozano MD, ENT, , [facility], [address] [facility] [address], [place], [address] Follow up in about two days as needed. Call for an appointment. Summary of care provided to patient. ADDITIONAL INFORMATION Salivary Gland Obstruction Salivary glands produce saliva in response to food in your mouth. Saliva is mostly water, but also has minerals and proteins that help digest food and keep the mouth and teeth healthy. There are three pairs of salivary glands: Parotid glands (in front of the ear) Submandibular glands (below the jaw) Sublingual glands (below the tongue) Each gland has a duct (channel) that allows saliva to flow from the gland to the mouth. A salivary stone can form as a result of poor salivary flow which allows minerals to deposit, creating a stone. When a stone forms, it blocks the flow of saliva. The gland swells and becomes painful. Symptoms are worse during eating since food stimulates the flow of saliva. Even the smell or thought of food can cause symptoms to appear. A blocked salivary gland is at risk of infection. This causes more severe pain with redness over the gland, tenderness and sometimes fever. Diagnosis of a salivary stone with obstruction is by CT-scan, X-ray, ultrasound or injection of dye into the salivary duct to look for blockage. If a stone is discovered, it may be removed by massage of the duct, or a procedure to remove the stone manually. Home Care: Once the stone passes, or is removed, you can reduce the chance of getting another stone by doing the following: Drink plenty of fluids to keep well-hydrated. Quit smoking. Maintain good dental hygiene. If it is determined that no stone is present, but you have gland swelling during meals, there may be sludge blocking the duct, or the duct may be narrowed. Gently massaging the gland and sucking on lemon drops after a meal may help reduce the symptoms. Follow Up with your doctor or as advised by our staff. Get Prompt Medical Attention if any of the following occur: Increasing pain or swelling in the gland Fever of 100.4F (38C) or higher, or as directed by your healthcare provider Redness over the tender gland Pus draining into the mouth Salivary Gland Swelling, Uncertain Cause Salivary glands make saliva in response to food in your mouth. Saliva is mostly water, but also has minerals and proteins that help break down food and keep the mouth and teeth healthy. There are three pairs of salivary glands: Parotid glands (in front of the ear) Submandibular glands (below the jaw) Sublingual glands (below the tongue) Each gland has a duct (channel) that allows saliva to flow from the gland into the mouth. Swelling of the salivary gland can occur due to disease within the gland or the duct being blocked. Diseases that cause salivary gland swelling include: Viral infection (mumps) Bacterial infection Tumor (most are benign) Cyst Chemotherapy or head and neck radiation for cancer Problems that block the salivary duct include: Salivary stone Sludge (sand-like particles) Stricture (narrowing) Certain medicines (some antidepressants, antihistamines, anti-psychotics, sedatives, methyldopa, and diuretics) can reduce salivary flow and cause swelling of the gland. Diagnosis can be made using blood tests X-ray, ultrasound, CT scan or injection of dye into the duct to look for blockage. Treatment depends on the exact cause of the swelling. Home Care: Drink 6-8 glasses of fluid per day (water, juices, tea, soup, etc.) to keep well-hydrated. If you smoke, quit smoking. Maintain good dental hygiene: brush your teeth, floss, and use mouthwash. If it is determined that no stone is present, but you have gland swelling during meals, there may be sludge blocking the duct, or the duct may be narrowed. Gently massaging the gland and sucking on lemon drops after a meal may help reduce the symptoms. Follow Up with your doctor or as advised by our staff. Get Prompt Medical Attention if any of the following occur: Increasing pain or swelling in the gland Fever of 100.4F (38C) or higher, or as directed by your healthcare provider Redness over the gland Pus draining into the mouth Tramadol Hydrochloride Oral tablet What is this medicine? TRAMADOL (TRA ma dole) is a pain reliever. It is used to treat moderate to severe pain in adults. How should I use this medicine? Take this medicine by mouth with a full glass of water. Follow the directions on the prescription label. If the medicine upsets your stomach, take it with food or milk. Do not take more medicine than you are told to take. Talk to your grocery clerk regarding the use of this medicine in children. Special care may be needed. What side effects may I notice from receiving this medicine? Side effects that you should report to your doctor or health hiv/aids care nurse as soon as possible: allergic reactions like skin rash, itching or hives, swelling of the face, lips, or tongue breathing difficulties, wheezing confusion itching light headedness or fainting spells redness, blistering, peeling or loosening of the skin, including inside the mouth seizures Side effects that usually do not require medical attention (report to your doctor or health hiv/aids care nurse if they continue or are bothersome): constipation dizziness drowsiness headache nausea, vomiting What may interact with this medicine? Do not take this medicine with any of the following medications: MAOIs like Carbex, Eldepryl, Marplan, Nardil, and Parnate This medicine may also interact with the following medications: alcohol or medicines that contain alcohol antihistamines benzodiazepines bupropion carbamazepine or oxcarbazepine clozapine cyclobenzaprine digoxin furazolidone linezolid medicines for depression, anxiety, or psychotic disturbances medicines for migraine headache like almotriptan, eletriptan, frovatriptan, naratriptan, rizatriptan, sumatriptan, zolmitriptan medicines for pain like pentazocine, buprenorphine, butorphanol, meperidine, nalbuphine, and propoxyphene medicines for sleep muscle relaxants naltrexone phenobarbital phenothiazines like perphenazine, thioridazine, chlorpromazine, mesoridazine, fluphenazine, prochlorperazine, promazine, and trifluoperazine procarbazine warfarin What if I miss a dose? If you miss a dose, take it as soon as you can. If it is almost time for your next dose, take only that dose. Do not take double or extra doses. Where should I keep my medicine? Keep out of the reach of children. Store at room temperature between 15 and 30 degrees C (59 and 86 degrees F). Keep container tightly closed. Throw away any unused medicine after the expiration date. What should I tell my health care provider before I take this medicine? They need to know if you have any of these conditions: brain tumor depression drug abuse or addiction head injury if you frequently drink alcohol containing drinks kidney disease or trouble passing urine liver disease lung disease, asthma, or breathing problems seizures or epilepsy suicidal thoughts, plans, or attempt; a previous suicide attempt by you or a family member an unusual or allergic reaction to tramadol, codeine, other medicines, foods, dyes, or preservatives or trying to get breast-feeding What should I watch for while using this medicine? Tell your doctor or health hiv/aids care nurse if your pain does not go away, if it gets worse, or if you have new or a different type of pain. You may develop tolerance to the medicine. Tolerance means that you will need a higher dose of the medicine for pain relief. Tolerance is normal and is expected if you take this medicine for a long time. Do not suddenly stop taking your medicine because you may develop a severe reaction. Your body becomes used to the medicine. This does NOT mean you are addicted. Addiction is a behavior related to getting and using a drug for a non-medical reason. If you have pain, you have a medical reason to take pain medicine. Your doctor will tell you how much medicine to take. If your doctor wants you to stop the medicine, the dose will be slowly lowered over time to avoid any side effects. You may get drowsy or dizzy. Do not drive, use machinery, or do anything that needs mental alertness until you know how this medicine affects you. Do not stand or sit up quickly, especially if you are an older patient. This reduces the risk of dizzy or fainting spells. Alcohol can increase or decrease the effects of this medicine. Avoid alcoholic drinks. You may have constipation. Try to have a bowel movement at least every 2 to 3 days. If you do not have a bowel movement for 3 days, call your doctor or health hiv/aids care nurse. Your mouth may get dry. Chewing sugarless gum or sucking hard candy, and drinking plenty of water may help. Contact your doctor if the problem does not go away or is severe. You have been given the following additional information: Salivary Duct Obstruction Salivary Gland Swelling, Unk Cause Tramadol Hydrochloride Oral tablet (Electronically signed by Jane Hooker A.R.N.P. 07/03/2016 16:52)
--- NOTE | 2016-07-03 16:53 | ED MED RECONCILIATION SUMMARY ---
Patient: GERRY WILSON Medication Reconciliation Report [facility] VisitID: [id number] [address] [place] [address] 45y, F Registration Date/Time: 07/03/2016 Weight: 81.6 kg Height/Length: 67 in. BMI: 28.2 ALLERGIES: Sulfa Antibiotics The patient's Home Medications are listed below: THE FOLLOWING MEDICATIONS NEED TO BE RECONCILED: Cephlaexin 500 mg , 4x a day Vicodin Oral (5-300 mg) 1 tablet, 4x a day The source(s) of the original Home Medication information: Not obtained. The following Medications were given to the patient in the Emergency Department: Toradol [IVP] IVP 30 mg, administered: 07/03/2016 3:07:00 PM The following Medications were prescribed to the patient: Ultram 50 mg tablets: take 1-2 orally every 6 hours as needed for pain. Dispense twenty (20). No refills. Substitution is permissible. -- Jane Hooker A.R.N.P.
--- NOTE | 2016-07-03 16:53 | ED MAR SUMMARY ---
..... Medication Administration Record [facility] [address] [place] [address] Patient: GERRY WILSON Visit ID: [id number] 45y, F Weight: 81.6 kg Height/Length: 67 in BMI: 28.2 ALLERGIES: Sulfa Antibiotics Given 15:07 07/03/2016 Sharmaine Childs R.N. Medication Administered: TORADOL [IVP], Dose: 30 mg IVP over 2 minute(s), Site: #1 left hand. Medication Ordered: Toradol IV 30 mg (NOW).
--- NOTE | 2016-07-03 16:53 | ED MED RECONCILIATION SUMMARY ---
Patient: GERRY WILSON Medication Reconciliation Report [facility] VisitID: [id number] [address] [place] [address] 45y, F Registration Date/Time: 07/03/2016 Weight: 81.6 kg Height/Length: 67 in. BMI: 28.2 ALLERGIES: Sulfa Antibiotics The patient's Home Medications are listed below: THE FOLLOWING MEDICATIONS NEED TO BE RECONCILED: Cephlaexin 500 mg , 4x a day Vicodin Oral (5-300 mg) 1 tablet, 4x a day The source(s) of the original Home Medication information: Not obtained. The following Medications were given to the patient in the Emergency Department: Toradol [IVP] IVP 30 mg, administered: 07/03/2016 3:07:00 PM The following Medications were prescribed to the patient: Ultram 50 mg tablets: take 1-2 orally every 6 hours as needed for pain. Dispense twenty (20). No refills. Substitution is permissible. -- Jane Hooker A.R.N.P.
--- NOTE | 2016-07-03 16:53 | ED MAR SUMMARY ---
..... Medication Administration Record [facility] [address] [place] [address] Patient: GERRY WILSON Visit ID: [id number] 45y, F Weight: 81.6 kg Height/Length: 67 in BMI: 28.2 ALLERGIES: Sulfa Antibiotics Given 15:07 07/03/2016 Sharmaine Childs R.N. Medication Administered: TORADOL [IVP], Dose: 30 mg IVP over 2 minute(s), Site: #1 left hand. Medication Ordered: Toradol IV 30 mg (NOW).
--- NOTE | 2016-07-03 16:53 | ED DISCHARGE INSTRUCTIONS ---
Patient: GERRY WILSON General Instructions [facility] VisitID: [id number] [address] [place] [address] 45y, F Registration Date/Time: 07/03/2016 Sialolithiasis. No associated abscess or acute parotitis. INSTRUCTIONS (continue with current antibiotics and other medications as previously directed and discussed). Warnings: GENERAL WARNINGS: Return or contact your physician immediately if your condition worsens or changes unexpectedly, if not improving as expected, or if other problems arise. Specifically return if problem worsens. Prescription Medications: Ultram 50 mg tablets: take 1-2 orally every 6 hours as needed for pain. Dispense twenty (20). No refills. Substitution is permissible. Understanding of the discharge instructions verbalized by patient and family. Follow-up with: Hector Covington MD, ENT, , [facility], [address] [place] [id number]; Romario Lozano MD, ENT, , [facility], [address] [facility] [address], [place], [id number] Follow up in about two days as needed. Call for an appointment. Summary of care provided to patient. ADDITIONAL INFORMATION Salivary Gland Obstruction Salivary glands produce saliva in response to food in your mouth. Saliva is mostly water, but also has minerals and proteins that help digest food and keep the mouth and teeth healthy. There are three pairs of salivary glands: Parotid glands (in front of the ear) Submandibular glands (below the jaw) Sublingual glands (below the tongue) Each gland has a duct (channel) that allows saliva to flow from the gland to the mouth. A salivary stone can form as a result of poor salivary flow which allows minerals to deposit, creating a stone. When a stone forms, it blocks the flow of saliva. The gland swells and becomes painful. Symptoms are worse during eating since food stimulates the flow of saliva. Even the smell or thought of food can cause symptoms to appear. A blocked salivary gland is at risk of infection. This causes more severe pain with redness over the gland, tenderness and sometimes fever. Diagnosis of a salivary stone with obstruction is by CT-scan, X-ray, ultrasound or injection of dye into the salivary duct to look for blockage. If a stone is discovered, it may be removed by massage of the duct, or a procedure to remove the stone manually. Home Care: Once the stone passes, or is removed, you can reduce the chance of getting another stone by doing the following: Drink plenty of fluids to keep well-hydrated. Quit smoking. Maintain good dental hygiene. If it is determined that no stone is present, but you have gland swelling during meals, there may be sludge blocking the duct, or the duct may be narrowed. Gently massaging the gland and sucking on lemon drops after a meal may help reduce the symptoms. Follow Up with your doctor or as advised by our staff. Get Prompt Medical Attention if any of the following occur: Increasing pain or swelling in the gland Fever of 100.4F (38C) or higher, or as directed by your healthcare provider Redness over the tender gland Pus draining into the mouth Salivary Gland Swelling, Uncertain Cause Salivary glands make saliva in response to food in your mouth. Saliva is mostly water, but also has minerals and proteins that help break down food and keep the mouth and teeth healthy. There are three pairs of salivary glands: Parotid glands (in front of the ear) Submandibular glands (below the jaw) Sublingual glands (below the tongue) Each gland has a duct (channel) that allows saliva to flow from the gland into the mouth. Swelling of the salivary gland can occur due to disease within the gland or the duct being blocked. Diseases that cause salivary gland swelling include: Viral infection (mumps) Bacterial infection Tumor (most are benign) Cyst Chemotherapy or head and neck radiation for cancer Problems that block the salivary duct include: Salivary stone Sludge (sand-like particles) Stricture (narrowing) Certain medicines (some antidepressants, antihistamines, anti-psychotics, sedatives, methyldopa, and diuretics) can reduce salivary flow and cause swelling of the gland. Diagnosis can be made using blood tests X-ray, ultrasound, CT scan or injection of dye into the duct to look for blockage. Treatment depends on the exact cause of the swelling. Home Care: Drink 6-8 glasses of fluid per day (water, juices, tea, soup, etc.) to keep well-hydrated. If you smoke, quit smoking. Maintain good dental hygiene: brush your teeth, floss, and use mouthwash. If it is determined that no stone is present, but you have gland swelling during meals, there may be sludge blocking the duct, or the duct may be narrowed. Gently massaging the gland and sucking on lemon drops after a meal may help reduce the symptoms. Follow Up with your doctor or as advised by our staff. Get Prompt Medical Attention if any of the following occur: Increasing pain or swelling in the gland Fever of 100.4F (38C) or higher, or as directed by your healthcare provider Redness over the gland Pus draining into the mouth Tramadol Hydrochloride Oral tablet What is this medicine? TRAMADOL (TRA ma dole) is a pain reliever. It is used to treat moderate to severe pain in adults. How should I use this medicine? Take this medicine by mouth with a full glass of water. Follow the directions on the prescription label. If the medicine upsets your stomach, take it with food or milk. Do not take more medicine than you are told to take. Talk to your welding equipment sales representative regarding the use of this medicine in children. Special care may be needed. What side effects may I notice from receiving this medicine? Side effects that you should report to your doctor or health customer care specialist as soon as possible: allergic reactions like skin rash, itching or hives, swelling of the face, lips, or tongue breathing difficulties, wheezing confusion itching light headedness or fainting spells redness, blistering, peeling or loosening of the skin, including inside the mouth seizures Side effects that usually do not require medical attention (report to your doctor or health customer care specialist if they continue or are bothersome): constipation dizziness drowsiness headache nausea, vomiting What may interact with this medicine? Do not take this medicine with any of the following medications: MAOIs like Carbex, Eldepryl, Marplan, Nardil, and Parnate This medicine may also interact with the following medications: alcohol or medicines that contain alcohol antihistamines benzodiazepines bupropion carbamazepine or oxcarbazepine clozapine cyclobenzaprine digoxin furazolidone linezolid medicines for depression, anxiety, or psychotic disturbances medicines for migraine headache like almotriptan, eletriptan, frovatriptan, naratriptan, rizatriptan, sumatriptan, zolmitriptan medicines for pain like pentazocine, buprenorphine, butorphanol, meperidine, nalbuphine, and propoxyphene medicines for sleep muscle relaxants naltrexone phenobarbital phenothiazines like perphenazine, thioridazine, chlorpromazine, mesoridazine, fluphenazine, prochlorperazine, promazine, and trifluoperazine procarbazine warfarin What if I miss a dose? If you miss a dose, take it as soon as you can. If it is almost time for your next dose, take only that dose. Do not take double or extra doses. Where should I keep my medicine? Keep out of the reach of children. Store at room temperature between 15 and 30 degrees C (59 and 86 degrees F). Keep container tightly closed. Throw away any unused medicine after the expiration date. What should I tell my health care provider before I take this medicine? They need to know if you have any of these conditions: brain tumor depression drug abuse or addiction head injury if you frequently drink alcohol containing drinks kidney disease or trouble passing urine liver disease lung disease, asthma, or breathing problems seizures or epilepsy suicidal thoughts, plans, or attempt; a previous suicide attempt by you or a family member an unusual or allergic reaction to tramadol, codeine, other medicines, foods, dyes, or preservatives or trying to get breast-feeding What should I watch for while using this medicine? Tell your doctor or health customer care specialist if your pain does not go away, if it gets worse, or if you have new or a different type of pain. You may develop tolerance to the medicine. Tolerance means that you will need a higher dose of the medicine for pain relief. Tolerance is normal and is expected if you take this medicine for a long time. Do not suddenly stop taking your medicine because you may develop a severe reaction. Your body becomes used to the medicine. This does NOT mean you are addicted. Addiction is a behavior related to getting and using a drug for a non-medical reason. If you have pain, you have a medical reason to take pain medicine. Your doctor will tell you how much medicine to take. If your doctor wants you to stop the medicine, the dose will be slowly lowered over time to avoid any side effects. You may get drowsy or dizzy. Do not drive, use machinery, or do anything that needs mental alertness until you know how this medicine affects you. Do not stand or sit up quickly, especially if you are an older patient. This reduces the risk of dizzy or fainting spells. Alcohol can increase or decrease the effects of this medicine. Avoid alcoholic drinks. You may have constipation. Try to have a bowel movement at least every 2 to 3 days. If you do not have a bowel movement for 3 days, call your doctor or health customer care specialist. Your mouth may get dry. Chewing sugarless gum or sucking hard candy, and drinking plenty of water may help. Contact your doctor if the problem does not go away or is severe. You have been given the following additional information: Salivary Duct Obstruction Salivary Gland Swelling, Unk Cause Tramadol Hydrochloride Oral tablet (Electronically signed by Jane Hooker A.R.N.P. 07/03/2016 16:52)
== END ==
LOC: ED SRH 13:02
DX: K11.20 Sialoadenitis, unspecified (principal)
CPT/HCPCS: 90100; 95059